=== PATIENT | female | born 2000 | race Caucasian/White ===

== ENCOUNTER 2019-06-06 09:24 | Outpatient (CLI) | payer OTHER | END 2019-06-06 09:25 | disposition home or self-care (01) | LOC: DI.N 09:24 | PROVIDERS: ATTEND Physician Assistant Medical | DX: Z53.9 Procedure and treatment not carried out, unspecified reason (principal) ==

== ENCOUNTER 2019-06-13 15:32 | Outpatient (CLI) | payer OTHER ==
--- NOTE | 2019-06-14 02:04 | XRAY Report ---
Reason: RT KNEE PAIN Procedure Date: 06/13/2019 Accession Number: [id number] / [id number] Procedure: XRN - Knee 3 View RT CPT Code: Final Report FULL RESULT: EXAM: RIGHT KNEE RADIOGRAPHY EXAM DATE: 06/13/2019 04:13 PM. CLINICAL HISTORY: RT KNEE PAIN. COMPARISON: WRIST 3 VIEW LT 06/13/2019 4:09 PM. TECHNIQUE: 3 views. FINDINGS: Bones: No acute fractures or suspicious bone lesions. Joints: Effusion is present. No subluxations. Soft Tissues: Unremarkable. IMPRESSION: Knee effusion. No acute fracture or subluxation. RAD[facility]
--- NOTE | 2019-06-14 02:04 | XRAY Report ---
Reason: LT WRIST PAIN Procedure Date: 06/13/2019 Accession Number: [id number] / [id number] Procedure: XRN - Wrist 3 View LT CPT Code: Final Report FULL RESULT: EXAM: LEFT WRIST RADIOGRAPHY EXAM DATE: 06/13/2019 04:13 PM. CLINICAL HISTORY: LT WRIST PAIN. COMPARISON: None. TECHNIQUE: 3 views. FINDINGS: Bones: No acute fractures or suspicious bone lesions. Joints: No subluxations. Soft Tissues: Unremarkable. IMPRESSION: No acute radiographic abnormalities. RADIA
== END 2019-06-13 15:33 | disposition home or self-care (01) ==
LOC: DI.N 15:32
PROVIDERS: ATTEND Physician Assistant Medical
DX: M25.532 Pain in left wrist (principal); M25.561 Pain in right knee; M25.461 Effusion, right knee